=== PATIENT | male | born 1985 | race Caucasian/White ===

== ENCOUNTER 2019-01-31 15:10 | Emergency (ER) | payer OTHER ==
[2019-01-31] MEDS ORDERED: TORAdol 30 mg Injection IV ONE (16:46)
--- NOTE | 2019-01-31 16:48 | ERPHSYRPT ---
- History of Present Illness Time Seen by Provider: 01/31/19 16:37 Historian: patient Exam Limitations: no limitations Patient Subjective Stated Complaint: CP x 4 days pain increases when he moves. intertmittent x 4 days/ nause and pain at times into the left arm./ Triage Nursing Assessment: alert and in no distress. CP x 4 days. paion goes into the left arm and into the neck.. thought maybe he strained a muscle. neuro intact. slight nausea at times but none at present. NSR Physician History: Pt started c/o left sided, sharp chest pain, radiating to his left shoulder blade 4 days ago, became worse today, he denies SOB, productive cough, wheezing , ,nausea, vomiting, fever, chills, other complaints. Timing/Duration: day(s) (4), gradual onset, worse Activities at Onset: none Quality: sharpness Location: other (left upper chest) Chest Pain Radiation: arm (left scapula) Severity of Pain-Max: severe Severity of Pain-Current: moderate Modifying Factors: Improves With: movement Associated Symptoms: denies symptoms Prior Chest Pain/Cardiac Workup: no prior chest pain Nitro Today/Relief: no nitro taken today Aspirin Treatment Today: no aspirin today Allergies/Adverse Reactions: No Known Drug Allergies Allergy (Unverified 01/31/19 17:13) Home Medications: No Reportable Medications [No Reported Medications] 01/31/19 [History] - Review of Systems Constitutional: No Symptoms Ears, Nose, & Throat: No Symptoms Respiratory: No Symptoms Cardiac: Chest Pain Abdominal/Gastrointestinal: No Symptoms Genitourinary Symptoms: No Symptoms Musculoskeletal: No Symptoms Skin: No Symptoms Neurological: No Symptoms All Other Systems: Reviewed and Negative - Past Medical History Pertinent Past Medical History: No - Past Surgical History Past Surgical History: No - Social History Smoking Status: Never smoker Exposure to second hand smoke: No Drug Use: none Patient Lives Alone: No - Nursing Vital Signs Nursing Vital Signs: Initial Vital Signs Temperature 97.9 F 01/31/19 15:11 Pulse Rate 69 01/31/19 15:11 Respiratory Rate 18 01/31/19 15:11 Blood Pressure 131/89 01/31/19 15:11 O2 Sat by Pulse Oximetry 99 01/31/19 15:11 Pain Scale Pain Intensity 0 - Physical Exam General Appearance: no apparent distress Ears, Nose, Throat Exam: normal ENT inspection Neck Exam: normal inspection, non-tender, supple, No carotid bruit, No JVD Respiratory Exam: normal breath sounds, lungs clear, airway intact, No chest tenderness, No rhonchi, No wheezing Cardiovascular Exam: regular rate/rhythm, normal heart sounds, normal peripheral pulses, No murmur Gastrointestinal/Abdomen Exam: soft, normal bowel sounds, No tenderness, No distention, No mass, No guarding Back Exam: normal inspection, No CVA tenderness Extremity Exam: normal inspection, No calf tenderness, No dai's sign, No pedal edema Neurologic Exam: alert, oriented x 3, cooperative, normal mood/affect Skin Exam: normal color, warm, dry, No rash, No petechiae, No diaphoresis Lymphatic Exam: No adenopathy SpO2 Interpretation: normal SpO2: 99 O2 Delivery: Room Air - Course Nursing assessment & vital signs reviewed: Yes EKG Interpreted by Me: RATE (62/min), NORMAL AXIS, NORMAL INTERVALS, NORMAL QRS , Non-specific ST Changes, Other (repeat Ekg: negative, unchanged) - Radiology Exams Chest X-ray Interpretation: Interpreted by me, Negative Ordered Tests: Active Orders 24 hr Category Date Time Status Roll Up Guider Operator STAT Care 01/31/19 15:35 Active EKG-ER Only STAT Care 01/31/19 15:35 Active EKG-ER Only STAT Care 01/31/19 16:45 Active EKG-ER Only STAT Care 01/31/19 18:56 Active IV Insertion STAT Care 01/31/19 15:35 Active CHEST 2 VIEWS (PA AND LAT) Stat Exams 01/31/19 16:45 Completed CBC W DIFF Stat Lab 01/31/19 16:45 Completed CK-Creatinine Phosphokinase Stat Lab 01/31/19 16:45 Completed CMP Stat Lab 01/31/19 16:45 Completed D-DIMER QUANTITATION Stat Lab 01/31/19 16:45 Completed NT PRO BNP Stat Lab 01/31/19 16:45 Completed PROTIME WITH INR Stat Lab 01/31/19 16:45 Completed PTT Stat Lab 01/31/19 16:45 Completed TROPONIN Q3H Lab 01/31/19 16:45 Completed TROPONIN Q3H Lab 01/31/19 19:05 Received TROPONIN Q3H Lab 01/31/19 22:00 Ordered TROPONIN Q3H Lab 01/31/19 22:45 Ordered TROPONIN Q3H Lab 02/01/19 01:45 Ordered TROPONIN Q3H Lab 02/01/19 04:45 Ordered Urine Triage Profile Stat Lab 01/31/19 17:40 Completed Medication Summary Discontinued Medications Generic Name Dose Route Start Last Admin Trade Name Nery PRN Reason Stop Dose Admin Ketorolac Tromethamine 30 mg 01/31/19 16:46 01/31/19 17:28 Toradol 30 Mg Injection IV 01/31/19 16:47 30 mg STAT ONE Administration Ketorolac Tromethamine Confirm 01/31/19 17:18 Toradol 30 Mg Injection Administered 01/31/19 17:19 Dose 30 mg .ROUTE .STK-MED ONE Lab/Rad Data: Laboratory Result Diagrams 01/31/19 16:45 01/31/19 16:45 Laboratory Results 01/31/19 01/31/19 01/31/19 Range/Units 17:40 16:45 16:45 WBC (4.0-10.5) K/mm3 RBC (4.1-5.6) M/mm3 Hgb (12.5-18.0) gm/dl Hct (42-50) % MCV (78-100) fl MCH (26-32) pg MCHC (32-36) g/dl RDW (11.5-14.0) % Plt Count (150-450) K/mm3 MPV (6-9.5) fl Gran % (36.0-66.0) % Eos # (Auto) (0-0.5) Absolute Lymphs (auto) (1.0-4.6) Absolute Monos (auto) (0.0-1.3) Lymphocytes % (24.0-44.0) % Monocytes % (0.0-12.0) % Eosinophils % (0.00-5.0) % Basophils % (0.0-0.4) % Absolute Granulocytes (1.4-6.9) Basophils # (0-0.4) PT 11.1 (8.83-12.87) SECONDS INR 0.98 (0.8-3.0) APTT 37.7 H (24.1-36.1) SECONDS D-Dimer 327 (215-500) ng/mL Sodium 140 (137-145) mmol/L Potassium 3.9 (3.5-5.1) mmol/L Chloride 101 (98-107) mmol/L Carbon Dioxide 27 (22-30) mmol/L Anion Gap 16.3 H (5-15) MEQ/L BUN 15 (9-20) mg/dL Creatinine 0.98 (0.66-1.25) mg/dL Estimated GFR > 60.0 ML/MIN Glucose 99 (74-106) mg/dL Calcium 9.8 (8.4-10.2) mg/dL Total Bilirubin 0.40 (0.2-1.3) mg/dL AST 25 (17-59) U/L ALT 22 (0-50) U/L Alkaline Phosphatase 54 (38-126) U/L Creatine Kinase 72 (55-170) U/L Troponin I (0.000-0.034) ng/mL NT-Pro-B Natriuret Pep 21.4 (0-450) pg/mL Serum Total Protein 7.6 (6.3-8.2) g/dL Albumin 4.6 (3.5-5.0) g/dL Urine Opiates Level NEGATIVE (NEGATIVE) Ur Methadone NEGATIVE (NEGATIVE) Urine Barbiturates NEGATIVE (NEGATIVE) Ur Phencyclidine (PCP) NEGATIVE (NEGATIVE) Urine Amphetamine NEGATIVE (NEGATIVE) U Benzodiazepine Level NEGATIVE (NEGATIVE) Urine Cocaine NEGATIVE (NEGATIVE) Urine Marijuana (THC) NEGATIVE (NEGATIVE) 01/31/19 01/31/19 Range/Units 16:45 16:45 WBC 5.5 (4.0-10.5) K/mm3 RBC 4.98 (4.1-5.6) M/mm3 Hgb 13.6 (12.5-18.0) gm/dl Hct 42.1 (42-50) % MCV 84.5 (78-100) fl MCH 27.3 (26-32) pg MCHC 32.3 (32-36) g/dl RDW 14.8 H (11.5-14.0) % Plt Count 279 (150-450) K/mm3 MPV 10.2 H (6-9.5) fl Gran % 39.9 (36.0-66.0) % Eos # (Auto) 0.37 (0-0.5) Absolute Lymphs (auto) 2.26 (1.0-4.6) Absolute Monos (auto) 0.61 (0.0-1.3) Lymphocytes % 41.5 (24.0-44.0) % Monocytes % 11.2 (0.0-12.0) % Eosinophils % 6.8 H (0.00-5.0) % Basophils % 0.6 (0.0-0.4) % Absolute Granulocytes 2.18 (1.4-6.9) Basophils # 0.03 (0-0.4) PT (8.83-12.87) SECONDS INR (0.8-3.0) APTT (24.1-36.1) SECONDS D-Dimer (215-500) ng/mL Sodium (137-145) mmol/L Potassium (3.5-5.1) mmol/L Chloride (98-107) mmol/L Carbon Dioxide (22-30) mmol/L Anion Gap (5-15) MEQ/L BUN (9-20) mg/dL Creatinine (0.66-1.25) mg/dL Estimated GFR ML/MIN Glucose (74-106) mg/dL Calcium (8.4-10.2) mg/dL Total Bilirubin (0.2-1.3) mg/dL AST (17-59) U/L ALT (0-50) U/L Alkaline Phosphatase (38-126) U/L Creatine Kinase (55-170) U/L Troponin I < 0.012 (0.000-0.034) ng/mL NT-Pro-B Natriuret Pep (0-450) pg/mL Serum Total Protein (6.3-8.2) g/dL Albumin (3.5-5.0) g/dL Urine Opiates Level (NEGATIVE) Ur Methadone (NEGATIVE) Urine Barbiturates (NEGATIVE) Ur Phencyclidine (PCP) (NEGATIVE) Urine Amphetamine (NEGATIVE) U Benzodiazepine Level (NEGATIVE) Urine Cocaine (NEGATIVE) Urine Marijuana (THC) (NEGATIVE) - Progress Progress: improved Air Movement: good Progress Note: 01/31/19 19:39 Pt states, he feels better, denies SOB, dizziness, pain improved significantly after Toradol, reviewed all his results, discussed with him, he is being discharged to rest x 2-3 days, apply moist heat to painful areas, and follow up with his physician next week. Blood Culture(s) Obtained: No Antibiotics given: No Counseled pt/family regarding: lab results, diagnosis, need for follow-up, rad results - Departure Departure Disposition: Home Clinical Impression: Chest pain Qualifiers: Chest pain type: other chest pain Qualified Code(s): R07.89 - Other chest pain ; R07.8 - Other chest pain Condition: Stable Critical Care Time: No Referrals: LIBERTAD WATSON MD [Primary Care Provider] - Instructions: Atypical Chest Pain Additional Instructions: Rest x 2-3 days, apply moist heat to painful area, and follow up with your physician next week, take (OTC) Motrin as needed! Return if severe pain, shortness of breath, vomiting, fever> 102 F!
[2019-01-31 16:53] LABS: BASOPHIL % 0.6 % (0.0-0.4); Basophil (Absolute #) 0.03 (0-0.4); Eosinophil % 6.8 % (0.00-5.0); Eosinophil (Absolute #) 0.37 (0-0.5); Granulocyte Absolute (ANC) 2.18 (1.4-6.9); Granulocytes % 39.9 % (36.0-66.0); Hematocrit 42.1 % (42-50); Hemoglobin 13.6 gm/dl (12.5-18.0); Lymphocyte (Absolute #) 2.26 (1.0-4.6); Lymphocytes % 41.5 % (24.0-44.0); Mean Cell Volume 84.5 fl (78-100); Mean Corpuscular Hemoglobin 27.3 pg (26-32); Mean Corpuscular Hgb Concent. 32.3 g/dl (32-36); Mean Platelet Volume 10.2 fl (6-9.5); Monocytes % 11.2 % (0.0-12.0); Platelet Count 279 K/mm3 (150-450); Red Blood Count 4.98 M/mm3 (4.1-5.6); Red Cell Distribution Width 14.8 % (11.5-14.0); White Blood Count 5.5 K/mm3 (4.0-10.5)
[2019-01-31 16:54] LABS: INR 0.98 (0.8-3.0); PROTIME 11.1 SECONDS (8.83-12.87)
[2019-01-31 16:57] LABS: PTT 37.7 SECONDS (24.1-36.1)
--- NOTE | 2019-01-31 17:04 | XRAY ---
Indication: Chest pain. Comparison: September 11, 2018. PA/lateral chest again demonstrates normal heart, lungs, and bony thorax.
[2019-01-31 17:08] LABS: ALBUMIN 4.6 g/dL (3.5-5.0); ALKALINE PHOSPHATASE 54 U/L (38-126); ANION GAP 16.3 MEQ/L (5-15); BLOOD UREA NITROGEN 15 mg/dL (9-20); CHLORIDE 101 mmol/L (98-107); CK-Creatinine Phosphokinase 72 U/L (55-170); Calcium 9.8 mg/dL (8.4-10.2); Carbon Dioxide 27 mmol/L (22-30); Creatinine 1 0.98 mg/dL (0.66-1.25); Glucose 99 mg/dL (74-106); NT PRO BNP 21.4 pg/mL (0-450); Potassium 3.9 mmol/L (3.5-5.1); SGOT/AST 25 U/L (17-59); SGPT/ALT 22 U/L (0-50); SODIUM 140 mmol/L (137-145); Total Protein 7.6 g/dL (6.3-8.2)
[2019-01-31] MEDS ORDERED: TORAdol 30 mg Injection ONE (17:18)
[2019-01-31 17:31] VITALS: PULSE 64
[2019-01-31 18:07] LABS: Amphetamine,Urine NEGATIVE (NEGATIVE); Barbiturate,Urine NEGATIVE (NEGATIVE); Benzodiazepine,Urine NEGATIVE (NEGATIVE); Cocaine,Urine NEGATIVE (NEGATIVE); Methadone,Urine NEGATIVE (NEGATIVE); Opiate,Urine NEGATIVE (NEGATIVE); PCP,Urine NEGATIVE (NEGATIVE); THC,Urine NEGATIVE (NEGATIVE)
[2019-01-31 18:09] VITALS: BP 119/83
[2019-01-31 19:31] VITALS: O2SAT 99
== END 2019-01-31 20:03 | disposition home or self-care (01) ==
LOC: ED 15:10
DX: R07.89 Other chest pain (principal)
CPT/HCPCS: 36000; 36415; 71046; 80053; 80307; 82550; 83880; 84484; 85025; 85379; 85610; 85730; 93005; 93041; 96374; 99284; J1885

== ENCOUNTER 2021-08-10 11:54 | Day surgery (SDC) | payer OTHER ==
[~2021-08-10 11:54] MED LIST: BUPIVACAINE 0.5% VIAL IJ ONE; Lactated Ringers 0 ML IV ONE; XYLOCAINE 1% HCL 20 ML MDV ONE
[2021-08-10] MEDS ORDERED: CEFAZOLIN 2 GM-D5W BAG** 2 GM/50 ML ML IV ONE (12:19)
[2021-08-10] MEDS ORDERED: Lactated Ringers 1,000 ML IV ONE (12:19)
[2021-08-10] MEDS ORDERED: CEFAZOLIN 2 GM-D5W BAG** 2 GM/50 ML ML IV SCH (12:30)
[2021-08-10] MEDS ORDERED: Lactated Ringers 1,000 ML IV SCH (12:30)
[2021-08-10] MEDS ORDERED: Versed 2 MG/2 ML Injection ONE (14:36)
[2021-08-10] MEDS ORDERED: SUBLIMAZE 100 MCG/2 ML ONE ×3 (14:36→20:02)
[2021-08-10] MEDS ORDERED: Zofran 4 MG/2 ML VIAL ONE ×2 (14:36→20:46)
[2021-08-10] MEDS ORDERED: DIPRIVAN 200 MG/20 ML IV ONE (14:36)
[2021-08-10] MEDS ORDERED: Decadron 4 MG INJ ONE (14:36)
[2021-08-10] MEDS ORDERED: Xylocaine-Mpf 2% 5 Ml Vial ONE (14:36)
[2021-08-10] MEDS ORDERED: TORAdol 30 mg Injection ONE (14:36)
--- NOTE | 2021-08-10 19:31 | XRAY ---
Indication: Left foot arthrodesis. Intraoperative fluoroscopy provided for 3 minutes 50 seconds. 11 digital spot images ultimately demonstrates 1st tarsometatarsal fusion with intact fixation plates/screws and proximal great toe osteotomy with intact single screw. Correlate with intraoperative findings/report.
[2021-08-10] MEDS ORDERED: Hydromorphone 1 mg/ml Injection ONE (19:36)
[2021-08-10] MEDS ORDERED: Compazine 10 MG/2 ML ONE (19:51)
[2021-08-10] MEDS ORDERED: Transderm Scop 1.5MG Patch ONE (20:46)
[2021-08-10] MEDS ORDERED: Transderm Scop 1.5MG Patch TOP ONE (20:50)
[2021-08-10] MEDS ORDERED: Zofran 4 MG/2 ML VIAL IV STA (20:50)
[2021-08-10 21:33] VITALS: O2SAT 95
[2021-08-10 21:49] VITALS: BP 132/84; PULSE 82
--- NOTE | 2021-08-11 09:11 | XRAY ---
3 minutes and 50 seconds fluoroscopy time in surgery for left foot repair.
--- NOTE | 2021-08-11 09:53 | OP ---
SURGERY DATE/TIME: 08/10/2021 1528 PREOPERATIVE DIAGNOSES: 1) Hallux abductovalgus. 2) Pain left foot. 3) Hypermobility of foot. 4) Medial cuneiform instability. POSTOPERATIVE DIAGNOSES: 1) Hallux abductovalgus. 2) Pain left foot. 3) Hypermobility of foot. 4) Medial cuneiform instability. PROCEDURES: 1) Lapidus arthrodesis. 2) [place] osteotomy. 3) Lateral release. 4) [facility] capsulotomy. SURGEON: Malachi Wynne DPM. NEUROLOGICAL PHYSIOTHERAPIST: None. ANESTHESIA: General plus a postoperative ankle block. HEMOSTASIS: Thigh tourniquet set to 350 mm of Mercury for 118 minutes. ESTIMATED BLOOD LOSS: Less than 30 cc. MATERIALS: 1 cc Bonus Triad. Two - 3.5 inline fusion four-hole plate Biomet A.L.P.S. foot and a 3.4 x 32 mm MAX VPC screw, 4-0 Monocryl and 3-0 Nylon, combination of locking and nonlocking screws. INJECTABLES: 30 cc of a 1:1 mixture of 1% lidocaine plain and 0.5 bupivacaine plain injected in ankle block-type fashion postoperatively. INDICATION FOR SURGERY: Florentin is a very pleasant 35-year-old male who presented to my clinic with complains of a painful bunion. The patient indicates that he has tried just about everything he could potentially think of including but not limited to attempting to try bigger shoes, custom stretching of shoes, padding and taping techniques. The patient had unsuccessful course of conservative treatment with this and presented to me with questions in regards to addressing his bunion. On clinical exam, he did have hypermobility of the first ray, which presented as the root test as well on radiographs. There was metatarsus primus elevatus. He did also have a moderate deformity. However, sesamoid position was abnormal and for that the decision was made to proceed with a Lapidus arthrodesis. The patient understood that he would also, based on the results of the operation, potentially proceed with an [place] osteotomy with lateral release and a possible capsulotomy as well. The patient understood all of this and understands the risks and complications associated with this. He understands that there is no guarantee as to the outcome of the surgical intervention and complications are a potential result with this method of proceeding with surgical intervention. He understands all of this and still wishes to proceed. Plenty of time was allowed for questions to be asked which were answered to the patient's apparent satisfaction. DESCRIPTION OF PROCEDURE AND FINDINGS: The patient is brought into the OR and placed on the OR table in the supine position. At this time adequate general anesthesia was administered by the anesthesia team and the patient was sedated. A well-padded thigh tourniquet was placed to the patient's left thigh setting the tourniquet to 350 mm of Mercury. At this time, attention was then directed to the left lower extremity which was prepped and draped in the typical sterile fashion. At this time, an Esmarch was utilized to exsanguinate the leg and the tourniquet was inflated. Attention was directed to the dorsal medial aspect of the first tarsometatarsal joint where linear incision was made through the skin and through the superficial layer of the subcutaneous tissue. A combination of sharp and blunt dissection was carried out down to the joint line. At this time the joint line was found and the capsule was released circumferentially. At this time, retractors were utilized to identify the joint surfaces and denude them of any cartilage, this was performed utilizing a combination of curettes, rongeurs and sagittal saw. The patient did have an atavistic medial cuneiform and for that the sagittal saw was utilized to plane this perpendicular to the second tarsometatarsal joint plane. The plantar lateral aspect of the first metatarsal was also planed in order to obtain better [id number] contact of the joint surfaces. Following this, the surgical site was flushed with copious amounts of sterile saline. The joint was then prepped utilizing a 2.0 mm drill as well as fish scaling with an osteotome. The 1 cc of Bonus Triad then was introduced into the surgical site and temporary fixation was achieved first through the compression distraction device as well as temporary fixation was applied. At this time this was checked under fluoroscopic imaging and deemed to be adequate with the intermetatarsal angle 1 - 2 being significantly corrected at this time as well as adequate bony apposition. The sesamoid position was also deemed to be adequate compared to postoperative on a loaded film. At this time, temporary fixation placed and the two - 3.5 four-hole inline fusion Biomet A.L.P.S. were applied to the dorsal and lateral aspect of the foot. The dorsal plate was applied first after having been bent to conform to the surgical site. The lateral plate was then applied and assessment of medial cuneiform instability was determined under stress fluoroscopic imaging. For this, the decision to proceed with intercuneiform screw was determined. Following this, the remaining screws were placed. At this time there was some residual osseous deformity at the medial aspect of the first metatarsal head where a sagittal saw was utilized to resect some of the metatarsal head and then plane down to a smooth surface. Attention was directed the lateral aspect of the first metatarsal where a lateral release was performed and a noticeable difference in the soft tissue tension was released with medial deviation of the digit. At this time, a [facility] capsulotomy was performed at the medial aspect of the joint resecting some of the capsule and pulling the toe out even further medially. At this time, attention was then directed to the toe where under loaded approach there was still some residual abduction of the hallux and decision for [place] was made to be performed at the distal aspect of the toe, this was performed utilizing a sagittal saw and 3.4 fully threaded variable compression 32 mm MAX VPC screw. Final position was deemed to be excellent. Radiographs were taken as finals and the capsule was then repaired over the dorsal aspect of the first metaphalangeal joint. Following, this copious amounts of sterile saline were utilized to flush the surgical site. 4-0 Monocryl was utilized to repair the capsule as well as the subcutaneous skin. 3-0 Nylon was utilized to coapt the surgical site in a horizontal mattress-type fashion. A posterior ankle block consisting of 30 cc of a 1:1 mixture of 1% lidocaine plain and 0.5% bupivacaine plain was injected in an ankle block-type fashion. A dressing consisting of Betadine, Adaptic, 4x4 and a very well-padded posterior splint was applied to the patient's left lower extremity secured with a 4 inch and 6 inch MANNY. At this time the patient was reversed from anesthesia and returned to the postoperative anesthesia care unit with vital signs stable and vascular status intact. The patient handled the procedure without complication and postoperative orders as indicated in the patient's chart.
== END 2021-08-10 21:35 | disposition home or self-care (01) ==
LOC: SDC 11:54
PROVIDERS: ATTEND Podiatrist Foot & Ankle Surgery
DX: M20.12 Hallux valgus (acquired), left foot (principal); M79.672 Pain in left foot; M35.7 Hypermobility syndrome; M25.375 Other instability, left foot
CPT/HCPCS: 28270; 28297; 28298; 73620; 76000; C1713; J0690; J1100; J1170; J1885; J2250; J2405; J2704; J3010; A9270-GY